=== PATIENT | male | born 1985 | race African-American/Black ===

== ENCOUNTER 2019-02-15 17:11 | Emergency (ER) | payer SELFPAY ==
[2019-02-15 17:41] LABS: ABSOLUTE LYMPHOCYTES (AUTO) 1.5 10^3/uL (0.5-4.7); ABSOLUTE MONOCYTES (AUTO) 0.7 10^3/uL (0.1-1.4); ABSOLUTE NEUT (AUTO) 5.4 10^3/uL (1.7-8.2); BASOPHILS % (AUTO) 0.5 % (0-2); EOSINOPHILS % (AUTO) 0.4 % (0-6); HEMATOCRIT 43.6 % (37.9-51.0); HEMOGLOBIN 15.1 g/dL (13.5-17.0); LYMPHOCYTES % (AUTO) 19.2 % (13-45); MEAN CORPUSCULAR HEMOGLOBIN 34.9 pg (27.0-33.4); MEAN CORPUSCULAR HGB CONC 34.7 g/dL (32.0-36.0); MEAN CORPUSCULAR VOLUME 101 fl (80-97); MONOCYTES % (AUTO) 9.2 % (3-13); PLATELET COUNT 240 10^3/uL (150-450); RED BLOOD COUNT 4.33 10^6/uL (4.35-5.55); RED CELL DISTRIBUTION WIDTH 13.3 % (11.5-14.0); SEGMENTED NEUTROPHILS % (AUTO) 70.7 % (42-78); TOTAL CELLS COUNTED % (AUTO) 100 %; WHITE BLOOD COUNT 7.7 10^3/uL (4.0-10.5)
[2019-02-15 18:00] LABS: ALANINE AMINOTRANSFERASE 20 U/L (21-72); ALBUMIN 4.7 g/dL (3.5-5.0); ALKALINE PHOSPHATASE 54 U/L (38-126); ANION GAP 11 (5-19); ASPARTATE AMINO TRANSFERASE 41 U/L (17-59); BILIRUBIN,DIRECT 0.3 mg/dL (0.0-0.4); BILIRUBIN,TOTAL 0.8 mg/dL (0.2-1.3); BLOOD UREA NITROGEN 8 mg/dL (7-20); CALCIUM 9.7 mg/dL (8.4-10.2); CARBON DIOXIDE 24 mmol/L (22-30); CHLORIDE 109 mmol/L (98-107); GLUCOSE 98 mg/dL (75-110); POTASSIUM 4.2 mmol/L (3.6-5.0); SODIUM 144.1 mmol/L (137-145); TOTAL PROTEIN 7.6 g/dL (6.3-8.2)
--- NOTE | 2019-02-15 18:12 | EKG REPORT ---
SEVERITY:- BORDERLINE ECG - SINUS RHYTHM BORDERLINE T WAVE ABNORMALITIES : Confirmed by: Guido Conrad MD 15-Feb-2019 18:12:31
--- NOTE | 2019-02-15 19:11 | ER Document Report ---
ED General - General Chief Complaint: Syncope Stated Complaint: SYNCOPE Time Seen by Provider: 02/15/19 18:11 TRAVEL OUTSIDE OF THE [place] IN LAST 30 DAYS: No - HPI Notes: Patient is a 33-year-old male brought into the emergency department, in custody of [facility] . Evidently he did leave fired gunshots in town. A nusrat ensued. Strips were thrown down, and the patient try to allude police by running. He wa s apprehended. Evidently he was in the back of the squad car when he slumped over, became unresponsive, and had what was described as "convulsions." There was no evidence of any sort of illegal substance ingestion at the scene. On questioning the patient states that he has had these syncopal episodes in the past. He really will not elaborate as to whether or not he has had them worked up. He states to me right now that he cannot feel anything from the neck down. He denies any recent injuries. No recent illness. - Related Data Allergies/Adverse Reactions: No Known Allergies Allergy (Unverified 02/15/19 19:09) Home Medications: Multivitamin Past Medical History - General Information source: Patient - Social History Smoking Status: Current Some Day Smoker Drug Abuse: Marijuana Family History: Reviewed & Not Pertinent Patient has suicidal ideation: No Patient has homicidal ideation: No - Medical History Medical History: Negative Renal/ Medical History: Denies: Hx Peritoneal Dialysis Review of Systems - Review of Systems Constitutional: See HPI EENT: No symptoms reported Cardiovascular: No symptoms reported Respiratory: No symptoms reported Gastrointestinal: Nausea Genitourinary: No symptoms reported Musculoskeletal: See HPI Skin: No symptoms reported Neurological/Psychological: See HPI Physical Exam - Vital signs Vitals: Resp BP Pulse Ox 13 129/80 H 99 02/15/19 17:16 02/15/19 17:16 02/15/19 17:16 - Notes Notes: This is a 33-year-old male who appears his stated age in no acute distress. Head is normal cephalic any traumatic. Pupils are equal round, reactive to light. Oral mucosa is moist. Uvula is midline. Heart is regular rate and rhythm, lungs are clear to oscillation bilaterally. Chest wall is nontender, chest wall excursion is equal bilaterally. Abdomen is soft, nontender, normal active bowel sounds. Patient is awake and alert, oriented x3. He has good tone, but will not make any voluntary movement at this time. He complains of global diminished sensation to light touch. Patellar and Achilles reflexes are mildly diminished but symmetrical. Cranial nerves II through XII are grossly intact. Course - Re-evaluation Re-evalutation: 02/15/19 21:50 Patient presents to the emergency department for evaluation in the custody of [facility]. He had a syncopal versus unresponsive episode in the back of the police cruiser. He was brought here for further evaluation. Upon arrival here the patient stated he could not feel anything from the neck down. Initially the patient would not voluntarily move in any way for me, although reflexes were normal. Laboratory investigations and imaging were ordered, reviewed as noted. The patient was resting comfortably in the room. I went into the room, sprayed a small amount of cold saline onto the patient's leg. He moved his entire left right lower extremity in response. The patient awoke, stating he still could not feel anything. I explained to him that he could. I removed the patient's bilateral upper extremities, which were still in cuffs, passively above his head. He then held them there for a few seconds and slowly lowered them, following the exact path of them being raised. The patient has exhibited voluntary movement in all 4 extremities at this point. He is vitally stable. I do suspect there is some aspect of anxiety, perhaps malingering, in this patient who is currently in the custody of the police department. In any case I do not see any signs of organic illness that would be leading to the sensations. He is vitally stable and medically cleared for incarceration. - Vital Signs Vital signs: Temp Pulse Resp BP Pulse Ox 14 128/73 H 100 02/15/19 21:40 02/15/19 21:41 02/15/19 21:00 - Laboratory Result Diagrams: 02/15/19 17:28 02/15/19 17:28 Laboratory results interpreted by me: 02/15/19 02/15/19 02/15/19 17:28 17:28 18:00 RBC 4.33 L MCV 101 H MCH 34.9 H Chloride 109 H ALT 20 L Urine Protein 100 H Urine Ketones TRACE H Urine Blood SMALL H Urine Urobilinogen 4.0 H Ur Leukocyte Esterase TRACE H - Diagnostic Test Radiology reviewed: Reports reviewed Radiology results interpreted by me: 02/15/19 21:[address] 02/15/19 18:28 IMPRESSION: 1. No acute intracranial abnormalities. 2. Reversal of the cervical spine which may be secondary to positioning for the examination versus spasm. 3. No fracture or acute subluxation. 4. RIGHT maxillary soft tissue swelling. TECHNICAL DOCUMENTATION: Quality ID # 436: Final reports with documentation of one or more dose reduction techniques (e.g., Automated exposure control, adjustment of the mA and/or kV according to patient size, use of iterative reconstruction technique) copyright 2010 [employer]- All Rights Reserved Head CT 02/15/19 18:28 IMPRESSION: 1. No acute intracranial abnormalities. 2. Reversal of the cervical spine which may be secondary to positioning for the examination versus spasm. 3. No fracture or acute subluxation. 4. RIGHT maxillary soft tissue swelling. TECHNICAL DOCUMENTATION: Quality ID # 436: Final reports with documentation of one or more dose reduction techniques (e.g., Automated exposure control, adjustment of the mA and/or kV according to patient size, use of iterative reconstruction technique) copyright 2010 [employer]- All Rights Reserved Chest X-Ray 02/15/19 18:30 IMPRESSION: No radiopaque foreign body. KUB X-Ray 02/15/19 18:30 IMPRESSION: No radiopaque foreign body. - EKG Interpretation by Me Additional EKG results interpreted by me: 02/15/19 21:52 Sinus mechanism with a rate of 96 bpm. Normal axis and intervals. Nonspecific ST changes, but no acute changes concerning for infarction. There are no old studies available for comparison. Discharge - Discharge Clinical Impression: Numbness Syncope Qualifiers: Encounter type: initial encounter Condition: Stable Disposition: OTHER Instructions: Numbness or Paresthesia ([facility]), Syncopal Episode ([facility]) Additional Instructions: No clear cause was found for your symptoms today. Follow-up with primary care next week. Return to the emergency department with worsening or new concerning symptoms of any sort. Referrals: [facility] [NO LOCAL MD] - Follow up as needed
[2019-02-15 19:25] LABS: URINE AMPHETAMINES SCREEN NEGATIVE; URINE BARBITURATES SCREEN NEGATIVE; URINE BENZODIAZEPINES SCREEN NEGATIVE; URINE COCAINE SCREEN NEGATIVE; URINE MARIJUANA (THC) SCREEN UNCONFIRMED POSITIVE; URINE METHADONE SCREEN NEGATIVE; URINE PHENCYCLIDINE SCREEN NEGATIVE
[2019-02-15 19:27] LABS: APPEARANCE,URINE SLIGHTLY-CLOUDY; BILIRUBIN,URINE NEGATIVE (NEGATIVE); COLOR,URINE YELLOW; GLUCOSE, URINE NEGATIVE (NEGATIVE); KETONES,URINE TRACE mg/dL (NEGATIVE); LEUKOCYTE ESTERASE,URINE TRACE (NEGATIVE); NITRITE,URINE NEGATIVE (NEGATIVE); PROTEIN,URINE 100 mg/dL (NEGATIVE); URINE SPECIFIC GRAVITY 1.021
--- NOTE | 2019-02-15 20:35 | RADIOLOGY REPORT (SQ) ---
EXAM DESCRIPTION: CT HEAD WITHOUT IV CONTRAST, CT CERVICAL SPINE WITHOUT IV CONTRAST COMPLETED DATE/TME: 02/15/2019 18:28 CLINICAL HISTORY: 33 years, Male, AMS, states no feeling from neck down COMPARISON: None. TECHNIQUE: Brain and Cervical spine CT was performed without contrast. Multiplanar reformatted images were provided. This exam was performed according to our departmental dose optimization program which includes use of automated exposure control, adjustment of the mA and/or kV according to patient size and/or use of iterative reconstruction technique. Images stored on PACS. All CT scanners at this facility use dose modulation, iterative reconstruction, and/or weight based dosing when appropriate to reduce radiation dose to as low as reasonably achievable (ALARA). [facility]: Dose Right [facility]: CareDose [facility]: Dose Right [facility]: Teradose 4D [facility]: [employer] LIMITATIONS: None. FINDINGS: The ventricles, sulci, and cisterns are symmetric and unremarkable. The yates-white matter differentiation is preserved. There is no mass effect, midline shift, intra- or extra-axial fluid collection/acute hemorrhage. The osseous structures are unremarkable. The paranasal sinuses and mastoid air cells are clear. RIGHT maxillary soft tissue swelling. Cervical spine: There is normal alignment of the cervical spine without fracture or subluxation. The facets are normal in alignment bilaterally. The posterior elements including the spinous processes are intact. Reversal of the cervical spine which may be secondary to positioning for the examination. Morphology and attenuation of the vertebral bodies and intervertebral disk spaces is compatible with mild multilevel degenerative change. Posterior osseous spurring at C4-5 and C5-6 vertebral levels resulting in moderate bilateral neuroforaminal narrowing. The pre-and paravertebral soft tissues are within normal limits. IMPRESSION: 1. No acute intracranial abnormalities. 2. Reversal of the cervical spine which may be secondary to positioning for the examination versus spasm. 3. No fracture or acute subluxation. 4. RIGHT maxillary soft tissue swelling. TECHNICAL DOCUMENTATION: Quality ID # 436: Final reports with documentation of one or more dose reduction techniques (e.g., Automated exposure control, adjustment of the mA and/or kV according to patient size, use of iterative reconstruction technique) copyright 2011 [employer]- All Rights Reserved
--- NOTE | 2019-02-15 20:41 | RADIOLOGY REPORT (SQ) ---
XR ABDOMEN 1 VIEW (KUB), XR CHEST 1 VIEW EXAM DATE: 02/15/2019 6:30 PM CDT HISTORY: AMS, eval for ingestion of drug bags. COMPARISON: None. FINDINGS: The heart size is within normal limits. No consolidation, pleural effusion, or pneumothorax is seen. The bony thorax is intact. No radiopaque foreign body is identified. Normal bowel gas pattern. IMPRESSION: No radiopaque foreign body.
[2019-02-15 22:10] VITALS: BP 130/67
== END 2019-02-15 22:24 | disposition other institution (70) ==
LOC: ER 17:11
DX: R55 Syncope and collapse (principal); R20.0 Anesthesia of skin; R11.0 Nausea; F17.200 Nicotine dependence, unspecified, uncomplicated
CPT/HCPCS: 36415; 51701; 70450; 71045; 72125; 74018; 80053; 80307; 81001; 85025; 93005; 93010; 99284